=== PATIENT | female | born 1980 | race Caucasian/White ===

== ENCOUNTER 2021-12-15 18:29 | Emergency (ER) | payer OTHER, SELFPAY ==
[2021-12-15 18:38] VITALS: BP 110/87; PULSE 79; RESP 16; TEMP 36.6; O2SAT 99
--- NOTE | 2021-12-15 18:54 | ED.URI ---
HPI - URI/Sore Throat General Chief Complaint: Upper Respiratory Infection Stated Complaint: COUGH Time Seen by Provider: 12/15/21 18:45 Source: patient Mode of arrival: ambulatory Limitations: no limitations History of Present Illness HPI Narrative: Ms. King is a 41-year-old female patient presenting to the clinic today with complaints of nonproductive cough, sinus congestion, sinus pressure, headache, and yellow nasal drainage x1 week. She reports it started out with sinus congestion and a stomach bug however the stomach bug as left and now she is left with lingering cough, sinus congestion, and sinus pressure. She denies any known exposure to Covid. She reports that her family has all been having the same symptoms and they have improved. She denies any fever or chills currently but vaughan had some fever and chills during the beginning of the illness. MD elicited complaint: cough, rhinorrhea, nasal congestion and sinus pain Related Data Home Medications Medication Instructions Recorded Confirmed multivitamin with minerals-folic 2 tablet PO DAILY tablet 10/12/20 09/14/21 acid 200 mcg chewable tablet levonorgestrel 20 mcg/24 hours (7 1 insert INTRAUTERINE ONCE 09/14/21 10/07/21 yrs) 52 mg intrauterine device Allergies Allergy/AdvReac Type Severity Reaction Status Date / Time No Known Allergies Allergy Verified 10/07/21 11:09 Review of Systems Review of Systems: Pertinent positives per HPI. Patient denies any fever, chills, rash, visual changes, dizziness, shortness of breath, chest pain, palpitations, nausea, vomiting, diarrhea, constipation, abdominal pain, or any urinary issues. [facility] Past Medical History Medical History Allergies Anxiety COVID-19 09/29- - 10/09/20 Diarrhea Irritable bowel syndrome Vaginal delivery x 2 Surgical History Surgical History Vaginal cyst 2004 Family History Family History Father Liver cancer Hypertension Heart disease Mother Hypertension Grandparent Diabetes mellitus Hypertension Cerebrovascular accident Social History Social History Social History: Patient states her is an alcoholic and they have altercations on occasions. Patient does not fear for her safety though. Smoking status: Never smoker Second hand tobacco smoke exposure: Yes Alcohol intake: current Drinks per week: 6 Alcohol use details: beer Substance use: current Substance use type: marijuana Additional occupation/education comments: teacher Gender identity (if verbalized by the patient): Female Spiritual care concerns: No Agree to blood products: Yes Comments At the time of my signature, I reviewed and agree with the nursing past medical, surgical, social, and family history. There is no relevant family history pertinent to the patient complaint. Exam Narrative: General: Well-developed, well nourished, in no apparent distress Head: Normocephalic, atraumatic Eyes: Pupils equally round and reactive to light bilaterally, EOM intact, sclera and conjunctive clear, no discharge, lids normal Ears: TMs intact and clear, ear canals clear, no drainage, grossly hearing normal. Nose: Nares patent, yellow nasal discharge, moderate inflammation to the anterior and posterior turbinates with white straei, sinus tenderness over the maxillary and frontal sinuses. Mouth: Oral pharynx without lesions or masses, good dentition, MMM. Postnasal drip Neck: Supple, trachea midline, no enlargement of anterior or posterior cervical nodes, no thyroid masses or goiter palpable. Cardio: Regular rate and rhythm, s1 and s2 normal, no murmur appreciated. Resp: Clear to auscultation bilaterally, no rhonchi, rales, wheezing or rubs
== END 2021-12-15 19:02 | disposition home or self-care (01) ==
PROVIDERS: Emergency Provider Nurse Practitioner Family; PCP Family Medicine
DX: J01.90 Acute sinusitis, unspecified (principal); R09.82 Postnasal drip; F12.90 Cannabis use, unspecified, uncomplicated; Z86.16 Personal history of COVID-19
CPT/HCPCS: 99213; G0463

== ENCOUNTER → 2021-12-27 17:47 | Outpatient (CLI) | payer OTHER, SELFPAY ==
--- NOTE | ~2021-12-27 | MM_ITS ---
EXAMINATION: MM screening delvis BI w dave HISTORY: Screening TECHNIQUE: Craniocaudal and mediolateral oblique 3-D tomosynthesis images were obtained and synthetic 2-D images were generated. CAD analysis was submitted and interpreted. COMPARISON: No prior mammogram is available for comparison at this institution. BREAST PARENCHYMAL COMPOSITION: The breasts are heterogeneously dense, which may obscure small masses . FINDINGS: There is no evidence of suspicious mass, calcification, or architectural distortion to sugg est malignancy in either breast. There has been no suspicious interval change. IMPRESSION: 1. No mammographic evidence of malignancy. 2. Recommend routine screening mammography in one year. BI-RADS Category 1: Negative Reviewed, dictated and finalized at location A.
== END ==
PROVIDERS: PCP Family Medicine; Visit Provider Student in an Organized Health Care Education/Training Program
DX: Z12.31 Encounter for screening mammogram for malignant neoplasm of breast (principal)
CPT/HCPCS: 77063; 77067

== ENCOUNTER 2024-02-21 10:29 | Outpatient (CLI) | payer OTHER, SELFPAY ==
--- NOTE | ~2024-02-21 | MM_ITS ---
EXAMINATION: MM screening delvis BI w dave HISTORY: Screening TECHNIQUE: Craniocaudal and mediolateral oblique 3-D tomosynthesis images were obtained and synthetic 2-D images were generated. CAD analysis was submitted and interpreted. COMPARISON: 12/27/2021 BREAST PARENCHYMAL COMPOSITION: The breasts are heterogeneously dense, which may obscure small masses . FINDINGS: There is no evidence of suspicious mass, calcification, or architectural distortion to sugg est malignancy in either breast. There has been no suspicious interval change. IMPRESSION: 1. No mammographic evidence of malignancy. 2. Recommend routine screening mammography in one year. BI-RADS Category 1: Negative Reviewed, dictated and finalized at location B.
== END 2024-02-21 10:30 ==
PROVIDERS: PCP Obstetrics & Gynecology; Visit Provider Obstetrics & Gynecology
DX: Z12.31 Encounter for screening mammogram for malignant neoplasm of breast (principal)
CPT/HCPCS: 77063; 77067